=== PATIENT | male | born 1960 | race Caucasian/White ===

== ENCOUNTER 2016-10-07 09:13 | Emergency (ER) | payer OTHER ==
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
[2016-10-07 11:29] VITALS: BP 149/90
== END 2016-10-07 11:15 | disposition home or self-care (01) ==
LOC: ER 09:13
DX: S90.31XA Contusion of right foot, initial encounter (principal); F17.210 Nicotine dependence, cigarettes, uncomplicated; W01.190A Fall on same level from slipping, tripping and stumbling with subsequent striking against furniture, initial encounter; Y92.003 Bedroom of unspecified non-institutional (private) residence as the place of occurrence of the external cause; Z88.0 Allergy status to penicillin; E78.00 Pure hypercholesterolemia, unspecified
CPT/HCPCS: 99283

== ENCOUNTER 2016-10-30 10:31 | Day surgery (SDC) | payer OTHER ==
[~2016-10-30 10:31] MED LIST: KETOROLAC TROMETHAMINE 0.45% 4 DROP/0.4 ML DROPERETTE OD PRN
[2016-10-30] MEDS ORDERED: LIDOCAINE 1% INJ-PF (10 MG/ML) 30 ML SDV ONE (11:04)
[2016-10-30] MEDS ORDERED: PHENYLEPHRINE/KETOROLAC 1%-0.3% 4 ML VIAL ONE (11:05)
[2016-10-30] MEDS ORDERED: CHONDR SU A NA/HYALUR INTRAOC KIT (SURGICARE) ONE (11:05)
[2016-10-30] MEDS: CYCLOPENTOLATE 0.2%/PHENYLEPHRINE 1% OPH SOLN 2 ML OD PRN ×3 (11:16→11:37)
[2016-10-30] MEDS: BESIFLOXACIN HCL 0.6% OPH SUSP 5 ML BOTTLE OD PRN ×3 (11:16→12:39)
[2016-10-30] MEDS: TETRACAINE HCL 0.5% OPH SOLN 2 ML OD PRN ×3 (11:16→12:05)
[2016-10-30] MEDS: TROPICAMIDE 1% OPH SOLN 3 ML OD PRN ×3 (11:16→11:37)
[2016-10-30] MEDS ORDERED: MIDAZOLAM 2 MG/2 ML INJ ONE (11:40)
[2016-10-30] MEDS ORDERED: FENTANYL CITRATE INJ/PF 100 MCG/2 ML AMPUL ONE (11:41)
--- NOTE | 2016-10-30 16:48 | [facility] OPERATIVE REPORT E ---
[facility] Operative Report NAME: HAO CHRISTIANSEN AGE: 56Y DATE OF SURGERY: 10/30/2016 ROOM: PREOPERATIVE DIAGNOSIS: Cataract, right eye. POSTOPERATIVE DIAGNOSIS: Cataract, right eye. OPERATION: Cataract extraction with intraocular lens implant of the right eye. SURGEON: PATI KATZ M.D. ANESTHESIA: Topical. PROCEDURE: After obtaining appropriate consent, the patient's right eye was prepped and draped in sterile fashion as well as the surgeon in a sterile manner and cataract surgery was started. First a paracentesis blade was used to make a small side-port incision. Viscoelastic was used to inflate the anterior chamber. Next a 2.4 mm incision was made with the paracentesis blade. A continuous capsulorrhexis incision was made using a cystotome and Utrata forceps. Following this hydrodissection was carried out to make the lens fully loose and mobile and it was rotated 90 degrees. Following this, a gpyzyr-ghp-aaejxyr technique was used to phacoemulsify the lens with a CDE of 5.64. The remaining cortex was removed with irrigation/aspiration. Provisc was instilled into the capsular bag to inflate the bag. A SN60WF, 18.5 diopter lens was placed. The remaining viscoelastic material was removed with irrigation/aspiration. Following this, a 10-0 nylon suture was used to close the incision and it was found to be watertight. Vigamox was instilled in the eye and a protective shield was placed over the eye. The patient returned to the postoperative recovery in stable condition. DICTATING PHYSICIAN: PATI KATZ M.D. [id number] PHY#: [id number] ID: [id number] JOB#: [id number] ACCT: [id number] cc:PATI KATZ M.D. >
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
== END 2016-10-30 13:20 | disposition home or self-care (01) ==
LOC: SC 10:31
PROVIDERS: ATTEND Internal Medicine
PROC: 08RJ3JZ Replacement of Right Lens with Synthetic Substitute, Percutaneous Approach (ICD-10-PCS; principal; 2016-10-30 12:00)
DX: H25.811 Combined forms of age-related cataract, right eye (principal); H57.03 Miosis; Z96.642 Presence of left artificial hip joint; F17.210 Nicotine dependence, cigarettes, uncomplicated; Z88.0 Allergy status to penicillin
CPT/HCPCS: 66984; V2632; J2250; J3490 ×2; J3010; C9447; 142

== ENCOUNTER → 2017-04-15 | Outpatient (CLI) | payer OTHER ==
--- NOTE | 2017-04-15 09:59 | RADIOLOGY REPORT (SQ) ---
EXAM DESCRIPTION: CHEST PA/LATERAL COMPLETED DATE/TIME: 04/15/2017 9:09 am REASON FOR STUDY: PRE-OP COMPARISON: 08/01/2016. EXAM PARAMETERS: NUMBER OF VIEWS: two views TECHNIQUE: Digital Frontal and Lateral radiographic views of the chest acquired. RADIATION DOSE: NA LIMITATIONS: none FINDINGS: LUNGS AND PLEURA: No opacities, masses or pneumothorax. No pleural effusion. MEDIASTINUM AND HILAR STRUCTURES: No masses or contour abnormalities. HEART AND VASCULAR STRUCTURES: Heart normal size. No evidence for failure. BONES: No acute findings. HARDWARE: None in the chest. OTHER: No other significant finding. IMPRESSION: NO SIGNIFICANT RADIOGRAPHIC FINDING IN THE CHEST. TECHNICAL DOCUMENTATION: JOB ID: [id number] [employer]- All Rights Reserved
[2017-04-15 10:03] LABS: ABSOLUTE BASOPHILS # (AUTO) 0.1 10^3/uL (0.0-0.2); ABSOLUTE EOSINOPHILS # (AUTO) 0.2 10^3/uL (0.0-0.6); ABSOLUTE MONOCYTES (AUTO) 0.7 10^3/uL (0.1-1.4); ABSOLUTE NEUT (AUTO) 3.1 10^3/uL (1.7-8.2); BASOPHILS % (AUTO) 0.8 % (0-2); EOSINOPHILS % (AUTO) 3.1 % (0-6); HEMATOCRIT 45.4 % (37.9-51.0); HEMOGLOBIN 15.8 g/dL (13.5-17.0); LYMPHOCYTES % (AUTO) 32.7 % (13-45); MEAN CORPUSCULAR HEMOGLOBIN 37.2 pg (27.0-33.4); MEAN CORPUSCULAR HGB CONC 34.9 g/dL (32.0-36.0); MEAN CORPUSCULAR VOLUME 107 fl (80-97); MONOCYTES % (AUTO) 11.2 % (3-13); RED BLOOD COUNT 4.26 10^6/uL (4.35-5.55); RED CELL DISTRIBUTION WIDTH 13.8 % (11.5-14.0); SEGMENTED NEUTROPHILS % (AUTO) 52.2 % (42-78)
[2017-04-15 10:31] LABS: ANION GAP 11 (5-19); BLOOD UREA NITROGEN 12 mg/dL (7-20); CALCIUM 8.8 mg/dL (8.4-10.2); CARBON DIOXIDE 25 mmol/L (22-30); CHLORIDE 101 mmol/L (98-107); GLUCOSE 76 mg/dL (75-110); POTASSIUM 4.3 mmol/L (3.6-5.0); SODIUM 136.8 mmol/L (137-145)
[2017-04-15 10:36] LABS: APPEARANCE,URINE CLEAR; BILIRUBIN,URINE NEGATIVE (NEGATIVE); GLUCOSE, URINE NEGATIVE (NEGATIVE); KETONES,URINE NEGATIVE (NEGATIVE); LEUKOCYTE ESTERASE,URINE NEGATIVE (NEGATIVE); NITRITE,URINE NEGATIVE (NEGATIVE); PROTEIN,URINE NEGATIVE (NEGATIVE); URINE SPECIFIC GRAVITY 1.006; UROBILINOGEN,URINE NEGATIVE mg/dL (<2.0)
--- NOTE | 2017-04-15 16:24 | EKG REPORT ---
SEVERITY:- NORMAL ECG - SINUS RHYTHM : Confirmed by: Nimo Salazar MD 15-Apr-2017 16:24:08
== END ==
LOC: OD 08:22
PROVIDERS: ATTEND Orthopaedic Surgery
DX: Z01.810 Encounter for preprocedural cardiovascular examination (principal); Z01.812 Encounter for preprocedural laboratory examination; Z01.818 Encounter for other preprocedural examination
CPT/HCPCS: 36415; 71020; 80048; 81001; 85025; 93005; 93010

== ENCOUNTER 2017-05-11 06:42 | Inpatient (IN) | payer OTHER ==
[~2017-05-11 06:42] MED LIST changes: +BUPIVACAINE INJ/PF LIPOSOME/PF 266 MG/20 ML SDV INJ PRN; +CLINDAMYCIN 600 MG/D5W RTU 600 MG/50 ML RTUPB IV PRN; +IBUPROFEN 800 MG in NORMAL SALINE 250 ML IV PRN; -KETOROLAC TROMETHAMINE 0.45% 4 DROP/0.4 ML DROPERETTE OD PRN; +LACTATED RINGERS 1000 ML IV PRN; +LANSOPRAZOLE 15 MG TAB.RAP.DR PO PRN; +LIDOCAINE 0.5% INJ-PF (5 MG/ML) 50 ML SDV SUBCUT PRN; +OXYCODONE HCL SR 10 MG TABLET PO PRN; +VANCOMYCIN HCL 1,000 MG in DEXTROSE 5%-WATER 250 ML IV PRN
[2017-05-11] MEDS ORDERED: FENTANYL CITRATE INJ/PF 100 MCG/2 ML AMPUL ONE (07:13)
[2017-05-11] MEDS ORDERED: PROPOFOL INJ 200 MG/20 ML VIAL IV ONE (07:14)
[2017-05-11] MEDS ORDERED: MIDAZOLAM 2 MG/2 ML INJ ONE (07:14)
[2017-05-11] MEDS ORDERED: ACETAMINOPHEN 0 ML IV ONE (07:15)
[2017-05-11] MEDS ORDERED: TRANEXAMIC ACID INJ/PF 1,000 MG/10 ML SDV IV ONE ×2 (07:15→11:10)
[2017-05-11] MEDS ORDERED: THROMBIN (BOVINE) TOPICAL 20000 UNIT VIAL ONE (07:16)
[2017-05-11] MEDS ORDERED: THROMBIN (BOVINE) 5000 UNIT EPITAXIS KIT ONE (07:16)
[2017-05-11] MEDS ORDERED: BUPIVACAINE INJ/PF LIPOSOME/PF 266 MG/20 ML SDV ONE (07:17)
[2017-05-11] MEDS ORDERED: ALBUTEROL SULFATE 0.083% NEB 2.5 MG/3 ML AMPUL NEB ONE (07:50)
[2017-05-11] MEDS ORDERED: EPHEDRINE SULFATE INJ 50 MG/1 ML AMPULE ONE (08:16)
[2017-05-11] MEDS ORDERED: DIPHENHYDRAMINE HCL 50 MG/ML VIAL IV PRN ×2 (09:25→09:58)
[2017-05-11] MEDS ORDERED: FENTANYL CITRATE INJ/PF 100 MCG/2 ML AMPUL IV PRN ×3 (09:25)
[2017-05-11] MEDS ORDERED: PROMETHAZINE HCL INJ 25 MG/1 ML VIAL IV PRN (09:25)
[2017-05-11] MEDS ORDERED: MORPHINE SULFATE 10 MG/ML INJ IM PRN (09:58)
[2017-05-11] MEDS ORDERED: ACETAMINOPHEN 325 MG TABLET PO PRN (09:58)
[2017-05-11] MEDS ORDERED: MORPHINE SULFATE 10 MG/ML INJ IV PRN ×2 (09:58)
[2017-05-11] MEDS ORDERED: RINGERS SOLUTION,LACTATED 1,000 ML IV PRN (09:58)
[2017-05-11] MEDS ORDERED: ZOLPIDEM TARTRATE 5 MG TABLET PO PRN ×2 (09:58→11:00)
[2017-05-11] MEDS ORDERED: ONDANSETRON 4 MG TAB.RAPDIS PO PRN ×2 (09:58→11:00)
[2017-05-11] MEDS ORDERED: ONDANSETRON HCL INJ/PF 4 MG/2 ML SDV IV PRN ×2 (09:58→11:00)
[2017-05-11] MEDS ORDERED: OXYCODONE HCL IR 5 MG TABLET PO PRN ×2 (09:58→11:00)
[2017-05-11] MEDS ORDERED: MAG HYDROX/AL HYDROX/SIMETH SUSP 30 ML UDCUP PO PRN ×2 (09:58→11:00)
--- NOTE | 2017-05-11 09:58 | Operative Report ---
Operative Report DATE OF SURGERY: 05/11/17 PREOPERATIVE DIAGNOSIS: Right knee arthritis OPERATION: Right knee arthroplasty SURGEON: YOLANDA BOSWELL 1ST CHECK WRITER: GAUDENCIO LOPES ANESTHESIA: Spinal TISSUE REMOVED OR ALTERED: Bone to pathology ESTIMATED BLOOD LOSS: 100 PROCEDURE: Implants used: Femur: [place] triathlon #7 CR femur Tibia: 6 tibia Tibial liner: 9 mm CS insert Patella: 35 mm oval patella Procedure with the patient supine on the operating table the right the limb is prepped and draped in a sterile fashion. The limb was elevated for exsanguination and the tourniquet inflated to 280 torr. A standard midline median parapatellar approach the knee is taken. Access is gained to the femoral canal through the intercondylar notch. Intramedullary alignment instrumentation used to resect 10 mm of distal femur in 5 of valgus. Sizing guide indicated a size 7 femur. Appropriate cutting jig is then used to fashion anterior posterior and chamfer cuts. A trial reduction femurs performed and this is judged to be adequate. Attention was next turned to the tibia. Using an extra medullary alignment system 9 millimeters was resected off the lateral tibial plateau. This is sized to a size 6 tibia. A trial reduction was now performed with a 7 femur and a 6 tibia using a 9 millimeters spacer. It is full extension and central patellofemoral tracking. The articular surface the patella was next resected using an oscillating saw. All trial implants were removed. Polymethylmethacrylate is mixed and used to cement the above implants in place. On adequate curing the cement excess cement was removed the tourniquet was deflated hemostasis obtained the wound is then closed in layers using interrupted Vicryl followed by jordan. A sterile compressive dressing was applied and the patient returned to recovery room in satisfactory condition.
[2017-05-11] MEDS ORDERED: OXYCODONE HCL SR 10 MG TABLET PO SCH (10:00)
[2017-05-11] MEDS ORDERED: SENNOSIDES/DOCUSATE 8.6-50 MG 1 EACH TABLET PO SCH (10:00)
[2017-05-11] MEDS ORDERED: PRENATAL VITAMIN W-O CA NO5/FE FUMARATE/FA CAPSULE PO SCH (10:00)
[2017-05-11] MEDS: TRANEXAMIC ACID INJ/PF 1,000 MG/10 ML SDV IV ONE (11:05)
--- NOTE | 2017-05-11 11:12 | RADIOLOGY REPORT (SQ) ---
EXAM DESCRIPTION: KNEE RIGHT 2 VIEWS COMPLETED DATE/TIME: 05/11/2017 11:01 am REASON FOR STUDY: Post OP -Long Cassette in PACU M25.561 PAIN IN RIGHT KNEE COMPARISON: None. NUMBER OF VIEWS: Three views view(s). TECHNIQUE: Digital radiographic images of the right knee post-procedure. LIMITATIONS: None. FINDINGS: BONES: No worrisome or unexpected findings post-procedure. DEVICE: Patient is status post right total knee replacement. The prosthesis appears well seated in t he distal femur and proximal tibia in the projections obtained. SOFT TISSUES: No worrisome findings. Expected postoperative soft tissue changes. IMPRESSION: SATISFACTORY POSTOPERATIVE RIGHT KNEE. TECHNICAL DOCUMENTATION: JOB ID: [id number] [employer]- All Rights Reserved
[2017-05-11] MEDS ORDERED: LIDOCAINE 2% INJ-PF (20 MG/ML) 10 ML AMPUL ONE (11:58)
[2017-05-11] MEDS ORDERED: PHENYLEPHRINE HCL INJ/PF 10 MG/1 ML SDV ONE (11:58)
[2017-05-11] MEDS ORDERED: ONDANSETRON HCL INJ/PF 4 MG/2 ML SDV ONE (11:58)
[2017-05-11] MEDS ORDERED: GLYCOPYRROLATE INJ 0.4 MG/2 ML VIAL ONE (11:58)
[2017-05-11] MEDS: MORPHINE SULFATE 10 MG/ML INJ IV PRN ×4 (12:35→23:57)
[2017-05-11] MEDS: SENNOSIDES/DOCUSATE 8.6-50 MG 1 EACH TABLET PO SCH (17:22)
[2017-05-11] MEDS: IBUPROFEN 800 MG in NORMAL SALINE 250 ML IV SCH (17:22)
[2017-05-11] MEDS ORDERED: VANCOMYCIN HCL 1,000 MG in DEXTROSE 5%-WATER 250 ML IV ONE (21:58)
[2017-05-11] MEDS ORDERED: RIVAROXABAN 10 MG TABLET PO SCH (22:00)
[2017-05-11] MEDS: OXYCODONE HCL SR 10 MG TABLET PO SCH (22:10)
[2017-05-12] MEDS: IBUPROFEN 800 MG in NORMAL SALINE 250 ML IV SCH ×2 (01:29→09:29)
[2017-05-12 05:21] LABS: HEMATOCRIT 35.5 % (37.9-51.0); HEMOGLOBIN 12.3 g/dL (13.5-17.0); HGB HCT DIFFERENCE 1.4; MEAN CORPUSCULAR HEMOGLOBIN 37.6 pg (27.0-33.4); MEAN CORPUSCULAR HGB CONC 34.7 g/dL (32.0-36.0); MEAN CORPUSCULAR VOLUME 108 fl (80-97); RED BLOOD COUNT 3.28 10^6/uL (4.35-5.55); RED CELL DISTRIBUTION WIDTH 14.4 % (11.5-14.0); WHITE BLOOD COUNT 5.6 10^3/uL (4.0-10.5)
[2017-05-12 05:40] LABS: ANION GAP 6 (5-19); BLOOD UREA NITROGEN 9 mg/dL (7-20); CALCIUM 8.9 mg/dL (8.4-10.2); CARBON DIOXIDE 26 mmol/L (22-30); CHLORIDE 105 mmol/L (98-107); CREATININE RESULT 0.86 mg/dL (0.52-1.25); GLUCOSE 93 mg/dL (75-110); POTASSIUM 4.5 mmol/L (3.6-5.0); SODIUM 136.9 mmol/L (137-145)
[2017-05-12] MEDS ORDERED: LANSOPRAZOLE 30 MG TAB.RAP.DR PO SCH (06:00)
[2017-05-12] MEDS: MORPHINE SULFATE 10 MG/ML INJ IV PRN (06:35)
--- NOTE | 2017-05-12 06:52 | PDOC DISCHARGE SUMMARY ---
General - Admit/Disc Date/PCP Admission Date/Primary Care Provider: 05/11/17 06:42 Discharge Date: 05/12/17 - Additional Information Resuscitation Status: Full Code Discharge Diet: As Tolerated, Regular Discharge Activity: Activity As Tolerated, No Driving, No tub bath Home Medications: Oxycodone HCl [Oxy-Ir 5 mg Tablet] 5 mg PO Q6HP PRN tablet 05/12/17 Rivaroxaban [Xarelto 10 mg Tablet] 10 mg PO QHS tablet 05/12/17 History of Present Illness History of Present Illness: HAO CHRISTIANSEN is a 56 year old male with progressive right knee pain and functional disability secondary osteoarthritis. Patient is admitted for elective right knee arthroplasty. Hospital Course Hospital Course: Patient is admitted through the operating room where he undergoes uncomplicated right knee arthroplasty. Makes excellent progress with physical therapy emulating 100 feet on the day of surgery. Dressing is changed on postop day 1. The underlying picot dressing is clean dry and intact. There is minimal pedal edema. Distal neurovascular examination is intact. Physical Exam Vital Signs: Temp Pulse Resp BP Pulse Ox 36.8 C 63 18 103/66 100 05/12/17 01:00 05/12/17 01:00 05/12/17 01:00 05/12/17 01:00 05/12/17 01:00 Intake & Output 05/10/17 05/11/17 05/12/17 06:59 06:59 06:59 Intake Total 5655 Output Total 3490 Balance 2165 General appearance: PRESENT: no acute distress Head exam: PRESENT: normocephalic Respiratory exam: PRESENT: unlabored Cardiovascular exam: PRESENT: RRR Pulses: PRESENT: +1 pedal pulses bilateral Vascular exam: PRESENT: normal capillary refill GI/Abdominal exam: PRESENT: soft Rectal exam: PRESENT: deferred Extremities exam: PRESENT: other - Right knee picot dressing is clean dry and intact. Neurological exam: PRESENT: alert, awake, oriented to person, oriented to place , oriented to time, oriented to situation. ABSENT: motor sensory deficit Psychiatric exam: PRESENT: appropriate affect, normal mood. ABSENT: homicidal ideation, suicidal ideation Skin exam: PRESENT: dry, intact, warm. ABSENT: cyanosis, rash Results Laboratory Results: 05/12/17 05:02 05/12/17 05:02 05/12/17 05/12/17 05:02 05:02 WBC 5.6 RBC 3.28 L Hgb 12.3 L Hct 35.5 L MCV 108 H MCH 37.6 H MCHC 34.7 RDW 14.4 H Plt Count 167 Sodium 136.9 L Potassium 4.5 Chloride 105 Carbon Dioxide 26 Anion Gap 6 BUN 9 Creatinine 0.86 Est GFR ( Amer) > 60 Est GFR (Non-Af Amer) > 60 Glucose 93 Calcium 8.9 Impressions: Knee X-Ray 05/11/17 09:59 IMPRESSION: SATISFACTORY POSTOPERATIVE RIGHT KNEE. Status: Imported from PACS Plan Discharge Plan: Patient to be discharged home with home health nursing, home health physical therapy, wheeled walker, bedside commode. Visiting nurse service to change the right knee picot dressing on postop day 7 and replaced with an OpSite. Follow- up will be with Dr. Mario in the [facility] for surgery in 2 weeks for staple removal.
[2017-05-12] MEDS: OXYCODONE HCL SR 10 MG TABLET PO SCH (09:30)
[2017-05-12] MEDS: SENNOSIDES/DOCUSATE 8.6-50 MG 1 EACH TABLET PO SCH (09:31)
[2017-05-12] MEDS ORDERED: PRENATAL VITAMIN W-O CA NO5/FE FUMARATE/FA CAPSULE PO SCH (10:00)
[2017-05-12 11:06] VITALS: BP 103/66
== END 2017-05-12 11:56 | disposition home health service (06) | DRG 470 ==
LOC: INOR 06:42 → 4S 11:49
PROVIDERS: ADMIT Orthopaedic Surgery; ATTEND Orthopaedic Surgery
PROC: 0SRC0J9 Replacement of Right Knee Joint with Synthetic Substitute, Cemented, Open Approach (ICD-10-PCS; principal; 2017-05-11 08:45)
DX: M17.11 Unilateral primary osteoarthritis, right knee (principal); F17.210 Nicotine dependence, cigarettes, uncomplicated; Z96.642 Presence of left artificial hip joint; Z88.0 Allergy status to penicillin
CPT/HCPCS: 01402; 36415; 80048; 85027; 88305; 88311; 94799; C2625; C9290; J0131; J1741; J2250; J2270; J2370; J2405; J2704; J3010; J3370; J3490; J7050; J7060

== ENCOUNTER → 2018-05-21 | Outpatient (CLI) | payer OTHER ==
--- NOTE | 2018-05-21 09:50 | RADIOLOGY REPORT (SQ) ---
EXAM DESCRIPTION: CHEST PA/LATERAL COMPLETED DATE/TIME: 05/21/2018 9:41 am REASON FOR STUDY: PRE-OP COMPARISON: Chest films 05/10/2015, 08/01/2016, 04/15/2017, 07/07/2017 EXAM PARAMETERS: NUMBER OF VIEWS: two views TECHNIQUE: Digital Frontal and Lateral radiographic views of the chest acquired. RADIATION DOSE: NA LIMITATIONS: none FINDINGS: LUNGS AND PLEURA: Flattening of the hemidiaphragms from hyperinflation from obstructive di sease. No acute infiltrates. No pleural effusion. No pneumothorax. MEDIASTINUM AND HILAR STRUCTURES: No masses or contour abnormalities. HEART AND VASCULAR STRUCTURES: Heart normal size. No evidence for failure. BONES: Osteopenic without compression deformity HARDWARE: None in the chest. OTHER: No other significant finding. IMPRESSION: Obstructive lung disease. No acute findings TECHNICAL DOCUMENTATION: JOB ID: [id number] [employer]- All Rights Reserved Reading location - IP/workstation name: [email or web address]
[2018-05-21 10:53] LABS: ABSOLUTE BASOPHILS # (AUTO) 0.1 10^3/uL (0.0-0.2); ABSOLUTE EOSINOPHILS # (AUTO) 0.3 10^3/uL (0.0-0.6); ABSOLUTE LYMPHOCYTES (AUTO) 2.4 10^3/uL (0.5-4.7); ABSOLUTE MONOCYTES (AUTO) 0.5 10^3/uL (0.1-1.4); ABSOLUTE NEUT (AUTO) 2.4 10^3/uL (1.7-8.2); BASOPHILS % (AUTO) 2.1 % (0-2); EOSINOPHILS % (AUTO) 5.1 % (0-6); HEMATOCRIT 36.6 % (37.9-51.0); HEMOGLOBIN 12.7 g/dL (13.5-17.0); MEAN CORPUSCULAR HGB CONC 34.8 g/dL (32.0-36.0); MEAN CORPUSCULAR VOLUME 106 fl (80-97); MONOCYTES % (AUTO) 9.4 % (3-13); PLATELET COUNT 331 10^3/uL (150-450); RED BLOOD COUNT 3.44 10^6/uL (4.35-5.55); RED CELL DISTRIBUTION WIDTH 13.9 % (11.5-14.0); SEGMENTED NEUTROPHILS % (AUTO) 41.4 % (42-78); TOTAL CELLS COUNTED % (AUTO) 100 %; WHITE BLOOD COUNT 5.7 10^3/uL (4.0-10.5)
[2018-05-21 11:22] LABS: ANION GAP 11 (5-19); BLOOD UREA NITROGEN 10 mg/dL (7-20); CALCIUM 9.1 mg/dL (8.4-10.2); CARBON DIOXIDE 26 mmol/L (22-30); CHLORIDE 103 mmol/L (98-107); GLUCOSE 84 mg/dL (75-110); POTASSIUM 5.1 mmol/L (3.6-5.0); SODIUM 140.3 mmol/L (137-145)
--- NOTE | 2018-05-21 13:03 | EKG REPORT ---
SEVERITY:- BORDERLINE ECG - SINUS RHYTHM BORDERLINE PROLONGED QT INTERVAL : Confirmed by: Reji Obando MD 21-May-2018 13:03:07
[2018-05-22 09:34] LABS: APPEARANCE,URINE CLEAR; BILIRUBIN,URINE NEGATIVE (NEGATIVE); COLOR,URINE STRAW; GLUCOSE, URINE NEGATIVE (NEGATIVE); KETONES,URINE NEGATIVE (NEGATIVE); LEUKOCYTE ESTERASE,URINE NEGATIVE (NEGATIVE); NITRITE,URINE NEGATIVE (NEGATIVE); PROTEIN,URINE NEGATIVE (NEGATIVE); URINE SPECIFIC GRAVITY 1.005; UROBILINOGEN,URINE NEGATIVE mg/dL (<2.0)
== END ==
LOC: OD 09:05
PROVIDERS: ATTEND Orthopaedic Surgery
DX: Z01.810 Encounter for preprocedural cardiovascular examination (principal); Z01.811 Encounter for preprocedural respiratory examination; Z01.812 Encounter for preprocedural laboratory examination
CPT/HCPCS: 36415; 71046; 80048; 81001; 85025; 93005; 93010

== ENCOUNTER 2018-06-22 08:53 | Day surgery (SDC) | payer OTHER ==
--- NOTE | 2018-06-21 11:03 | Operative Report ---
Operative Report DATE OF SURGERY: 06/21/18 PREOPERATIVE DIAGNOSIS: Left knee arthritis OPERATION: Left knee arthroplasty SURGEON: YOLANDA BOSWELL ANESTHESIA: Spinal TISSUE REMOVED OR ALTERED: Bone to pathology ESTIMATED BLOOD LOSS: 100 PROCEDURE: Implants used: Femur: [place] triathlon size 7 CR femur Tibia: 6 tibia Tibial liner: 9 mm CS insert Patella: 35 mm oval patella Procedure with the patient supine on the operating table the left the limb is prepped and draped in a sterile fashion. The limb was elevated for exsanguination and the tourniquet inflated to 280 torr. A standard midline median parapatellar approach the knee is taken. Access is gained to the femoral canal through the intercondylar notch. Intramedullary alignment instrumentation used to resect 10 mm of distal femur in 5 of valgus. Sizing guide indicated a size 7 femur. Appropriate cutting jig is then used to fashion anterior posterior and chamfer cuts. A trial reduction femurs performed and this is judged to be adequate. Attention was next turned to the tibia. Using an extra medullary alignment system 9 millimeters was resected off the lateral tibial plateau. This is sized to a size 6 tibia. A trial reduction was now performed with a 7 femur and a 6 tibia using a 9 millimeters spacer. It is full extension and central patellofemoral tracking. The articular surface the patella was next resected using an oscillating saw. All trial implants were removed. Polymethylmethacrylate is mixed and used to cement the above implants in place. On adequate curing the cement excess cement was removed the tourniquet was deflated hemostasis obtained the wound is then closed in layers using interrupted Vicryl followed by jordan. A sterile compressive dressing was applied and the patient returned to recovery room in satisfactory condition.
--- NOTE | 2018-06-21 12:37 | RADIOLOGY REPORT (SQ) ---
EXAM DESCRIPTION: KNEE LEFT 2 VIEWS COMPLETED DATE/TIME: 06/21/2018 11:42 am REASON FOR STUDY: Post OP -Long Cassette in PACU M17.12 UNILATERAL PRIMARY OSTEOARTHRITIS, LEFT KNE E COMPARISON: None. NUMBER OF VIEWS: Two view(s). TECHNIQUE: Digital radiographic images of the left knee post-procedure. LIMITATIONS: None. FINDINGS: BONES: No worrisome or unexpected findings post-procedure. DEVICE: Total knee arthroplasty. SOFT TISSUES: No worrisome findings. Expected postoperative soft tissue changes. IMPRESSION: SATISFACTORY POSTOPERATIVE LEFT KNEE. TECHNICAL DOCUMENTATION: JOB ID: [id number] [employer]- All Rights Reserved Reading location - IP/workstation name: [email or web address]
[2018-06-21] MEDS: IBUPROFEN 800 MG in NORMAL SALINE 250 ML IV SCH ×2 (15:18→21:41)
[2018-06-21] MEDS: SENNOSIDES/DOCUSATE 8.6-50 MG 1 EACH TABLET PO SCH (17:23)
[2018-06-21] MEDS: OXYCODONE HCL SR 10 MG TABLET PO SCH (21:42)
[2018-06-22] MEDS: IBUPROFEN 800 MG in NORMAL SALINE 250 ML IV SCH (05:25)
[2018-06-22 06:24] LABS: HEMATOCRIT 29.7 % (37.9-51.0); HEMOGLOBIN 10.6 g/dL (13.5-17.0); MEAN CORPUSCULAR HEMOGLOBIN 40.1 pg (27.0-33.4); MEAN CORPUSCULAR HGB CONC 35.5 g/dL (32.0-36.0); PLATELET COUNT 181 10^3/uL (150-450); RED BLOOD COUNT 2.63 10^6/uL (4.35-5.55); RED CELL DISTRIBUTION WIDTH 14.4 % (11.5-14.0); WHITE BLOOD COUNT 5.2 10^3/uL (4.0-10.5)
[2018-06-22 06:53] LABS: BLOOD UREA NITROGEN 10 mg/dL (7-20); CALCIUM 8.2 mg/dL (8.4-10.2); GLUCOSE 92 mg/dL (75-110); POTASSIUM 4.2 mmol/L (3.6-5.0)
[2018-06-22 06:58] LABS: CARBON DIOXIDE 26 mmol/L (22-30); CHLORIDE 105 mmol/L (98-107); SODIUM 134.2 mmol/L (137-145)
[2018-06-22 07:08] LABS: ANION GAP 3 (5-19)
--- NOTE | 2018-06-22 07:15 | PDOC DISCHARGE SUMMARY ---
General - Admit/Disc Date/PCP Admission Date/Primary Care Provider: 06/21/18 07:46 MARIA SABA, Discharge Date: 06/22/18 - Discharge Diagnosis (1) Arthritis of left knee Is this a current diagnosis for this admission?: Yes - Additional Information Resuscitation Status: Full Code Discharge Diet: As Tolerated, Regular Discharge Activity: Balance Activity w/Rest, No Driving, No tub bath Home Medications: Ibuprofen [Motrin 800 mg Tablet] 800 mg PO ASDIR PRN 05/31/18 Lisinopril [Zestril] 2.5 mg PO DAILY 05/31/18 Aspirin [Ecotrin 81 mg EC Tablet] 81 mg PO DAILY tabec 06/22/18 Oxycodone HCl [Oxy-Ir 5 mg Tablet] 5 mg PO Q6HP PRN tablet 06/22/18 History of Present Illness History of Present Illness: HAO CHRISTIANSEN is a 57 year old male Patient is a 57-year-old white male with progressive left knee pain and functional disability secondary osteoarthritis. Patient is admitted for elective left knee arthroplasty. Hospital Course Hospital Course: Patient is admitted through the operating room where he undergoes an uncomplicated left knee arthroplasty. Is returned to floor in satisfactory condition. Pain is reasonably well controlled. Patient makes excellent progress with physical therapy ambulating 150 feet on the day of surgery. Compressive dressing is removed on postop day 2. The underlying OpSite dressing is clean dry and intact with minimal pedal edema. Physical Exam Vital Signs: Temp Pulse Resp BP Pulse Ox 37.0 C 73 16 104/59 L 96 06/21/18 23:14 06/21/18 23:14 06/21/18 23:14 06/21/18 23:14 06/21/18 23:14 Intake & Output 06/21/18 06/22/18 06/23/18 06:59 06:59 06:59 Intake Total 6500 Output Total 2500 Balance 4000 Weight 82.1 kg General appearance: PRESENT: no acute distress, mild distress, thin Head exam: PRESENT: normocephalic Respiratory exam: PRESENT: unlabored Cardiovascular exam: PRESENT: RRR Pulses: PRESENT: +1 pedal pulses bilateral Vascular exam: PRESENT: normal capillary refill GI/Abdominal exam: PRESENT: soft Rectal exam: PRESENT: deferred Extremities exam: PRESENT: other - Left knee dressing is clean dry and intact. Minimal pedal edema. Distal neurovascular examination is intact. Neurological exam: PRESENT: alert, awake, oriented to person, oriented to place , oriented to time, oriented to situation. ABSENT: motor sensory deficit Psychiatric exam: PRESENT: appropriate affect, normal mood. ABSENT: homicidal ideation, suicidal ideation Skin exam: PRESENT: dry, intact, warm. ABSENT: cyanosis, rash Results Laboratory Results: 06/22/18 05:38 06/21/18 06/22/18 08:15 05:38 Sodium 134.2 L Potassium 4.2 4.2 Chloride 105 Carbon Dioxide 26 Anion Gap 3 L BUN 10 Creatinine 0.92 Est GFR ( Amer) > 60 Est GFR (Non-Af Amer) > 60 Glucose 92 Calcium 8.2 L Impressions: Knee X-Ray 06/21/18 11:06 IMPRESSION: SATISFACTORY POSTOPERATIVE LEFT KNEE. Status: Imported from PACS Qualifiers - * PATIENT BEING DISCHARGED WITH ANY OF THE FOLLOWING DIAGNOSIS: No VTE patient discharged on overlapping Therapy?: Yes Plan Discharge Plan: Patient is converted from an inpatient status to an outpatient observation status. He is ready for discharge home with home health services and DME. Follow-up with Dr. Mario and [facility] for surgery in 2 weeks for staple removal. Time Spent: Less than 30 Minutes
[2018-06-22 07:40] LABS: MEAN CORPUSCULAR VOLUME 113 fl (80-97)
[~2018-06-22 08:53] MED LIST changes: +ACETAMINOPHEN 325 MG TABLET PO PRN; +BUPIVACAINE HCL/DEX-WATER/PF 15 MG/2 ML AMPULE ONE; +BUPIVACAINE INJ/PF LIPOSOME/PF 266 MG/20 ML SDV IJ PRN; -BUPIVACAINE INJ/PF LIPOSOME/PF 266 MG/20 ML SDV INJ PRN; +BUPIVACAINE INJ/PF LIPOSOME/PF 266 MG/20 ML SDV ONE; +CEFAZOLIN INJ 1 GM VIAL IV PRN; +CEFAZOLIN INJ 1 GM VIAL ONE; -CLINDAMYCIN 600 MG/D5W RTU 600 MG/50 ML RTUPB IV PRN; +DIPHENHYDRAMINE HCL 50 MG/ML VIAL IV PRN; +DIPHENHYDRAMINE HCL 50 MG/ML VIAL ONE; +FENTANYL CITRATE INJ/PF 100 MCG/2 ML AMPUL IV PRN; +FENTANYL CITRATE INJ/PF 100 MCG/2 ML AMPUL ONE; -IBUPROFEN 800 MG in NORMAL SALINE 250 ML IV PRN; +IBUPROFEN 800 MG/NS 250 ML IV PRN; +IPRATROPIUM/ALBUTEROL 0.5-2.5 MG/3 ML AMPUL NEB ONE; +LANSOPRAZOLE 15 MG TAB.RAP.DR ONE; +LANSOPRAZOLE 30 MG TAB.RAP.DR PO SCH; +MAG HYDROX/AL HYDROX/SIMETH SUSP 30 ML UDCUP PO PRN; +MEPERIDINE HCL/PF INJ 25 MG/1 ML DISP.SYRIN IV PRN; +MIDAZOLAM 2 MG/2 ML INJ ONE; +MORPHINE SULFATE 10 MG/ML INJ IM PRN; +MORPHINE SULFATE 10 MG/ML INJ IV PRN; +ONDANSETRON 4 MG TAB.RAPDIS PO PRN; +ONDANSETRON HCL INJ/PF 4 MG/2 ML SDV IV PRN; +OXYCODONE HCL IR 5 MG TABLET PO PRN; +OXYCODONE HCL SR 10 MG TABLET PO ONE; +PROMETHAZINE HCL INJ 25 MG/1 ML VIAL IV PRN; +PROPOFOL INJ 200 MG/20 ML VIAL IV ONE; +RINGERS SOLUTION,LACTATED 1,000 ML IV PRN; +THROMBIN (BOVINE) 5000 UNIT EPITAXIS KIT ONE; +THROMBIN (BOVINE) TOPICAL 20000 UNIT VIAL ONE; +TRANEXAMIC ACID INJ/PF 1,000 MG/10 ML SDV IV ONE; +VANCOMYCIN HCL 1,000 MG in DEXTROSE 5%-WATER 250 ML IV ONE; +ZOLPIDEM TARTRATE 5 MG TABLET PO PRN
[2018-06-22] MEDS: OXYCODONE HCL SR 10 MG TABLET PO SCH (09:23)
[2018-06-22] MEDS: SENNOSIDES/DOCUSATE 8.6-50 MG 1 EACH TABLET PO SCH (09:24)
[2018-06-22] MEDS ORDERED: ASPIRIN 81 MG TABLET, ENT COATED PO SCH (10:00)
[2018-06-22] MEDS ORDERED: PRENATAL VITAMIN W DHA CAPSULE PO SCH (10:00)
[2018-06-22] MEDS ORDERED: (PENDING PHARMACY ID) (Lisinopril [Zestril] 2.5 MG) PO SCH (10:00)
[2018-06-22] MEDS ORDERED: LISINOPRIL 5 MG TABLET PO SCH (10:00)
[2018-06-22 10:54] VITALS: BP 120/65
[2018-06-22 19:55] LABS: PATH REVIEW PATHOLOGIST REVIEWED
== END 2018-06-22 11:15 | disposition home health service (06) ==
LOC: UNDOADMOB 08:53 → OBSVTOIN 08:53 → 4S 08:53 → OROUT 08:53 → INTOOBSV 08:53 → OROUT 11:15 → UNDODISOB 11:15
PROVIDERS: ATTEND Orthopaedic Surgery
PROC: 0SRD0J9 Replacement of Left Knee Joint with Synthetic Substitute, Cemented, Open Approach (ICD-10-PCS; principal; 2018-06-22)
DX: M17.12 Unilateral primary osteoarthritis, left knee (principal); I10 Essential (primary) hypertension; F17.210 Nicotine dependence, cigarettes, uncomplicated; R26.89 Other abnormalities of gait and mobility; Z96.651 Presence of right artificial knee joint; Z96.642 Presence of left artificial hip joint; Z79.899 Other long term (current) drug therapy
CPT/HCPCS: 27447; 36415 ×2; 84132; 85027; 80048; 88305 ×2; 88311; 73560; 94799; 97110 ×2; 97116 ×2; 97163; 97165; C1713 ×3; C1776 ×3; J2250; J0690; J3490 ×5; J1200; J3010; J2270; J7060; J7050; J2704; J3370; J7620; C9290; J1741; 01402